=== PATIENT | female | born 1985 ===

== ENCOUNTER → 2017-05-20 | Outpatient (CLI) | payer OTHER | END | disposition home or self-care (01) | LOC: C.PAPS 08:00 | PROVIDERS: ATTEND Physician Assistant | DX: Z12.4 Encounter for screening for malignant neoplasm of cervix (principal) ==

== ENCOUNTER → 2017-05-27 | Outpatient (CLI) | payer OTHER | END | disposition home or self-care (01) | LOC: C.PATHSPEC 12:30 | PROVIDERS: ATTEND Obstetrics & Gynecology | DX: N84.1 Polyp of cervix uteri (principal) ==